=== PATIENT | male | born 1990 | race Caucasian/White ===

== ENCOUNTER 2018-03-11 11:13 | Emergency (ER) | payer SELFPAY ==
[2018-03-11] MEDS ORDERED: Ibuprofen 200 MG TAB ONE (12:21)
== END 2018-03-11 13:04 | disposition home or self-care (01) ==
LOC: ERS 11:13
DX: J02.9 Acute pharyngitis, unspecified (principal); F31.9 Bipolar disorder, unspecified
CPT/HCPCS: 87081; 87430; 99283

== ENCOUNTER 2018-04-06 16:57 | Emergency (ER) | payer SELFPAY ==
[2018-04-06 17:58] LABS: Bilirubin Negative (Negative); Blood, Urine Negative (Negative); Clarity CLOUDY (Clear); Glucose, Urine (Dipstick) Negative (Negative); Leukocyte Moderate (Negative); Nitrite Negative (Negative); Protein, Urine (Dipstick) 30 mg/dL (Neg-Trace); pH, Urine 8.5 (5.0-9.0)
[2018-04-06 18:01] LABS: Bacteria/HPF None Seen HPF (None Seen); Hyaline Casts/LPF 0-3 HYALINE CAST LPF (0-3 Hyaline); Pathc Cast-AUWi Flag 0.43 (0-2.49); RBC/HPF 0-3 HPF (0-3); Squamous Epithelial None Seen HPF (0-3)
[2018-04-06] MEDS ORDERED: cefTRIAXone\\ROCEPHIN 250 MG VIAL ONE (18:50)
[2018-04-06] MEDS ORDERED: Azithromycin 250 MG TAB ONE (18:50)
[2018-04-06] MEDS ORDERED: Lidocaine 1% PF 5 ML VIAL ONE (18:50)
[2018-04-06] MEDS ORDERED: Calcium Gluc 4.6 MEQ/10 ML (100 MG/ML) ONE (18:51)
== END 2018-04-06 19:32 | disposition home or self-care (01) ==
LOC: ERS 16:57
DX: N34.2 Other urethritis (principal); F31.9 Bipolar disorder, unspecified; F17.210 Nicotine dependence, cigarettes, uncomplicated
CPT/HCPCS: 81003; 81015; 96372; J0696; J2001

== ENCOUNTER 2021-12-15 14:46 | Emergency (ER) | payer SELFPAY | END 2021-12-15 15:34 | disposition home or self-care (01) | LOC: ERS 14:46 | DX: S20.211A Contusion of right front wall of thorax, initial encounter (principal); F17.210 Nicotine dependence, cigarettes, uncomplicated ==